=== PATIENT | male | born 1995 | race African-American/Black ===

== ENCOUNTER 2018-02-12 08:26 | Emergency (ER) | payer OTHER ==
[~2018-02-12] VITALS: Ht 193 cm; Wt 113.4 kg
[2018-02-12] MEDS ORDERED: ZYRTEC10 M5 PO (08:32)
[2018-02-12] MEDS ORDERED: VENTOLIN HFA 1818 GM INH ×2 (08:32→09:26)
[2018-02-12] MEDS ORDERED: PREDNISONE 20 M20 MG PO (09:26)
[2018-02-12 09:55] VITALS: BP 129/78
== END 2018-02-12 09:56 | disposition home or self-care (01) ==
LOC: ER 08:26
DX: J45.901 Unspecified asthma with (acute) exacerbation (principal); J98.8 Other specified respiratory disorders